=== PATIENT | female | born 1935 | race Asian ===

== ENCOUNTER 2017-02-17 09:31 | Outpatient (CLI) | payer MEDICARE, OTHER ==
[2017-02-17 13:05] LABS: ALBUMIN/GLOBULIN RATIO 1.4 (1.0-2.2); BILIRUBIN,TOTAL 0.7 mg/dL (0.2-1.0); CALCIUM 9.2 mg/dL (8.5-10.3); CREATININE 0.6 mg/dL (0.4-1.0); TOTAL PROTEIN 7.3 g/dL (6.7-8.2)
== END 2017-02-17 09:32 | disposition home or self-care (01) ==
LOC: LAB.WCP 09:31
PROVIDERS: ATTEND Physician Assistant Medical
DX: R05 Cough (principal); R63.4 Abnormal weight loss; R53.83 Other fatigue
CPT/HCPCS: 36415; 80053

== ENCOUNTER 2017-02-27 10:20 | Outpatient (CLI) | payer MEDICARE, OTHER ==
--- NOTE | 2017-02-28 12:47 | Mammography Report ---
DIGITAL SCREENING MAMMOGRAM: 02/27/2017 CLINICAL INDICATION: An 81-year-old with history of benign right breast biopsy, for screening. COMPARISON: 01/2016, 12/2014, 12/2013, 09/2012, 09/2011, 09/2010, 08/2009. TECHNIQUE: Routine CC and MLO projections were obtained of the breasts. FINDINGS: Scattered fibroglandular tissue is present within the breasts. There are no dominant tremayne s, suspicious microcalcifications, or secondary signs of malignancy. In comparison to the previous st udies, there are no significant changes. ASSESSMENT: NO MAMMOGRAPHIC EVIDENCE OF MALIGNANCY. NO SIGNIFICANT INTERVAL CHANGES. RECOMMENDATION: Screening mammography is recommended annually. BIRADS category 1 - negative. STANDARD QUALIFYING STATEMENTS 1. This examination was reviewed with the aid of Computed-Aided Detection (CAD). 2. A negative or benign imaging report should not delay biopsy if clinically suspicious findings are present. Consider surgical consultation if warranted. More than 5% of cancers are not identified by i maging. 3. Dense breasts may obscure an underlying neoplasm. JOB #: [id number] EXT JOB #:[id number]
== END 2017-02-27 10:21 | disposition home or self-care (01) ==
LOC: DI 10:20
PROVIDERS: ATTEND Physician Assistant Medical
DX: Z12.31 Encounter for screening mammogram for malignant neoplasm of breast (principal)
CPT/HCPCS: 77067

== ENCOUNTER 2017-03-10 10:17 | Outpatient (CLI) | payer MEDICARE, OTHER ==
[2017-03-10] MEDS ORDERED: IOPAMIDOL-300 50 ML VIAL ONE (10:43)
[2017-03-10] MEDS ORDERED: IOPAMIDOL-300 100 ML VIAL ONE (10:43)
[2017-03-10] MEDS ORDERED: IOPAMIDOL-300 50 ML VIAL PO ONE (11:00)
[2017-03-10] MEDS ORDERED: IOPAMIDOL-300 100 ML VIAL IVP ONE (11:00)
--- NOTE | 2017-03-10 13:34 | CT Report ---
CT CHEST WITH CONTRAST: 03/10/2017 CLINICAL INDICATION: Cough, chronic weight loss. TECHNIQUE: Axial CT images of the chest were obtained with 100 mL Isovue-300 intravenously. In accordance with CT protocol optimization, one or more of the following dose reduction techniques w ere utilized for this exam: automated exposure control, adjustment of mA and/or KV based on patient size, or use of iterative reconstructive technique. COMPARISON: 09/07/2015 FINDINGS: The heart and great vessels demonstrate atherosclerotic calcifications. Calcified mediast inal lymph nodes are present. No hilar or mediastinal lymphadenopathy is present. The lungs demonst rate emphysema. No pulmonary nodule or mass lesion is present. No effusion or pneumothorax is seen. Osseous structures demonstrate degenerative changes. IMPRESSION: EMPHYSEMA. NO SUSPICIOUS PULMONARY NODULE OR MASS LESION. :9 JOB #: [id number] EXT JOB #:[id number]
--- NOTE | 2017-03-10 13:37 | CT Report ---
CT ABDOMEN AND PELVIS WITH CONTRAST: 03/10/2017 CLINICAL INDICATION: Weight loss, left upper quadrant pain. TECHNIQUE: Axial CT images of the abdomen and pelvis were obtained with 100 mL Isovue-300 intravenou sly as well as oral contrast. In accordance with CT protocol optimization, one or more of the following dose reduction techniques w ere utilized for this exam: automated exposure control, adjustment of mA and/or KV based on patient size, or use of iterative reconstructive technique. COMPARISON: 09/07/2015 FINDINGS: The liver demonstrates a tiny hypodensity in the right lobe, statistically likely represen ting a cyst. The spleen, pancreas, kidneys, and adrenal glands are unremarkable. The gallbladder is not dilated. No bowel dilatation, free gas, or free fluid is present. No abdominal adenopathy is s een. Pelvis: The pelvic organs appear unremarkable. No free fluid or adenopathy is present. Osseous structures demonstrate degenerative changes. IMPRESSION: NO EVIDENT ETIOLOGY FOR PATIENT'S WEIGHT LOSS AND PAIN. JOB #: [id number] EXT JOB #:[id number]
== END 2017-03-10 10:18 | disposition home or self-care (01) ==
LOC: DI 10:17
PROVIDERS: ATTEND Physician Assistant Medical
DX: J44.9 Chronic obstructive pulmonary disease, unspecified (principal); R10.12 Left upper quadrant pain; R63.4 Abnormal weight loss
CPT/HCPCS: 71260; 74177; Q9967

== ENCOUNTER 2017-06-20 13:07 | Outpatient (CLI) | payer MEDICARE, OTHER ==
[2017-06-20] MEDS ORDERED: ALBUTEROL NEB 2.5 MG/3 ML INH ONE (14:05)
[2017-06-20] MEDS ORDERED: ALBUTEROL NEB 2.5 MG/3 ML INH PRN (14:48)
== END 2017-06-20 13:08 | disposition home or self-care (01) ==
LOC: RT 13:07
PROVIDERS: ATTEND Physician Assistant Medical
DX: J44.9 Chronic obstructive pulmonary disease, unspecified (principal)
CPT/HCPCS: 94060; 94664; 94729; J7613

== ENCOUNTER 2017-07-30 08:20 | Outpatient (CLI) | payer MEDICARE, OTHER ==
[2017-07-30 13:04] LABS: BASOPHILS # (AUTO) 0.2 10^3/uL (0.0-0.1); BASOPHILS % (AUTO) 2.6 %; EOSINOPHILS # (AUTO) 0.4 10^3/uL (0.0-0.7); EOSINOPHILS % (AUTO) 5.8 %; HGB - HEMOGLOBIN 13.6 g/dL (12.0-16.0); LYMPHOCYTES % (AUTO) 32.1 %; MEAN CORPUSCULAR HEMOGLOBIN 29.3 pg (27.0-31.0); MEAN CORPUSCULAR HGB CONC 33.8 g/dL (32.0-36.0); MEAN CORPUSCULAR VOLUME 86.7 fL (81.0-99.0); MEAN PLATELET VOLUME 7.8 fL (7.9-10.8); MONOCYTES # (AUTO) 0.5 10^3/uL (0.0-1.0); MONOCYTES % (AUTO) 7.5 %; NEUTROPHILS # (AUTO) 3.2 10^3/uL (1.5-6.6); PLT - PLATELET COUNT 232 10^3/uL (130-450); RED BLOOD COUNT 4.65 10^6/uL (4.20-5.40); RED CELL DISTRIBUTION WIDTH 13.3 % (12.0-15.0); WHITE BLOOD COUNT 6.1 x10^3/uL (4.8-10.8)
[2017-07-30 13:42] LABS: ALBUMIN 3.9 g/dL (3.2-5.5); ALBUMIN/GLOBULIN RATIO 1.3 (1.0-2.2); ALKALINE PHOSPHATASE 53 IU/L (42-121); ALT ALANINE AMINOTRANSFERASE 13 IU/L (10-60); AST ASPARTATE AMINOTRANSFERASE 20 IU/L (10-42); BILIRUBIN,TOTAL 0.4 mg/dL (0.2-1.0); BUN - BLOOD UREA NITROGEN 17 mg/dL (6-20); CALCIUM 8.9 mg/dL (8.5-10.3); CARBON DIOXIDE - CO2 30 mmol/L (21-32); CHLORIDE 101 mmol/L (101-111); CHOL/HDL RATIO 2.7 (<4.4); CHOLESTEROL 170 mg/dL; CREATININE 0.5 mg/dL (0.4-1.0); GFR - MDRD 118 (>89); GLUCOSE 91 mg/dL (70-100); HDL CHOLESTEROL 63 mg/dL; LDL CHOLESTEROL,CALCULATED 93 mg/dL; LDL/HDL RATIO 1.5 (<4.4); SODIUM 138 mmol/L (135-145); TOTAL PROTEIN 6.9 g/dL (6.7-8.2); VLDL CHOLESTEROL 14 mg/dL
== END 2017-07-30 08:21 | disposition home or self-care (01) ==
LOC: LAB.WCP 08:20
PROVIDERS: ATTEND Physician Assistant Medical
DX: E78.00 Pure hypercholesterolemia, unspecified (principal); M85.80 Other specified disorders of bone density and structure, unspecified site; R53.83 Other fatigue; Z79.899 Other long term (current) drug therapy
CPT/HCPCS: 36415; 80053; 80061; 82306; 83721; 84443; 85025

== ENCOUNTER 2018-03-03 08:50 | Outpatient (CLI) | payer MEDICARE, OTHER ==
[2018-03-03 12:29] LABS: BASOPHILS # (AUTO) 0.1 10^3/uL (0.0-0.1); EOSINOPHILS # (AUTO) 0.4 10^3/uL (0.0-0.7); HGB - HEMOGLOBIN 13.8 g/dL (12.0-16.0); LYMPHOCYTES # (AUTO) 1.9 10^3/uL (1.5-3.5); LYMPHOCYTES % (AUTO) 41.3 %; MEAN CORPUSCULAR HEMOGLOBIN 29.7 pg (27.0-31.0); MEAN CORPUSCULAR HGB CONC 32.9 g/dL (32.0-36.0); MEAN CORPUSCULAR VOLUME 90.2 fL (81.0-99.0); MEAN PLATELET VOLUME 8.2 fL (7.9-10.8); MONOCYTES # (AUTO) 0.5 10^3/uL (0.0-1.0); MONOCYTES % (AUTO) 11.4 %; NEUTROPHILS # (AUTO) 1.7 10^3/uL (1.5-6.6); NEUTROPHILS % (AUTO) 37.3 %; PLT - PLATELET COUNT 186 10^3/uL (130-450); RED BLOOD COUNT 4.64 10^6/uL (4.20-5.40); RED CELL DISTRIBUTION WIDTH 13.9 % (12.0-15.0); WHITE BLOOD COUNT 4.6 x10^3/uL (4.8-10.8)
[2018-03-03 12:51] LABS: ALBUMIN 4.3 g/dL (3.2-5.5); ALBUMIN/GLOBULIN RATIO 1.5 (1.0-2.2); ALKALINE PHOSPHATASE 58 IU/L (42-121); ALT ALANINE AMINOTRANSFERASE 17 IU/L (10-60); AST ASPARTATE AMINOTRANSFERASE 21 IU/L (10-42); BILIRUBIN,TOTAL 0.6 mg/dL (0.2-1.0); BUN - BLOOD UREA NITROGEN 23 mg/dL (6-20); CALCIUM 9.1 mg/dL (8.5-10.3); CARBON DIOXIDE - CO2 31 mmol/L (21-32); CHLORIDE 102 mmol/L (101-111); CHOL/HDL RATIO 2.3 (<4.4); CHOLESTEROL 203 mg/dL; CREATININE 0.5 mg/dL (0.4-1.0); GFR - MDRD 118 (>89); GLUCOSE 92 mg/dL (70-100); HDL CHOLESTEROL 89 mg/dL; LDL CHOLESTEROL,CALCULATED 97 mg/dL; LDL/HDL RATIO 1.1 (<4.4); SODIUM 142 mmol/L (135-145); TOTAL PROTEIN 7.2 g/dL (6.7-8.2); VLDL CHOLESTEROL 17 mg/dL
== END 2018-03-03 08:51 | disposition home or self-care (01) ==
LOC: LAB.WCP 08:50
PROVIDERS: ATTEND Family Medicine
DX: E78.00 Pure hypercholesterolemia, unspecified (principal); J44.9 Chronic obstructive pulmonary disease, unspecified; R05 Cough; R53.83 Other fatigue
CPT/HCPCS: 36415; 80053; 80061; 83721; 85025

== ENCOUNTER 2018-10-22 08:00 | Outpatient (CLI) | payer MEDICARE, OTHER ==
[2018-10-22 08:20] LABS: BASOPHILS # (AUTO) 0.1 10^3/uL (0.0-0.1); BASOPHILS % (AUTO) 1.9 %; EOSINOPHILS # (AUTO) 0.1 10^3/uL (0.0-0.7); EOSINOPHILS % (AUTO) 3.9 %; HGB - HEMOGLOBIN 14.1 g/dL (12.0-16.0); LYMPHOCYTES # (AUTO) 1.4 10^3/uL (1.5-3.5); LYMPHOCYTES % (AUTO) 37.2 %; MEAN CORPUSCULAR HEMOGLOBIN 28.9 pg (27.0-31.0); MEAN CORPUSCULAR HGB CONC 32.1 g/dL (32.0-36.0); MEAN PLATELET VOLUME 7.3 fL (7.9-10.8); MONOCYTES # (AUTO) 0.4 10^3/uL (0.0-1.0); MONOCYTES % (AUTO) 9.8 %; NEUTROPHILS # (AUTO) 1.8 10^3/uL (1.5-6.6); NEUTROPHILS % (AUTO) 47.2 %; PLT - PLATELET COUNT 140 10^3/uL (130-450); RED BLOOD COUNT 4.87 10^6/uL (4.20-5.40); RED CELL DISTRIBUTION WIDTH 13.6 % (12.0-15.0); WHITE BLOOD COUNT 3.7 x10^3/uL (4.8-10.8)
[2018-10-22 08:27] LABS: ALBUMIN/GLOBULIN RATIO 1.6 (1.0-2.2); ALKALINE PHOSPHATASE 60 IU/L (42-121); ALT ALANINE AMINOTRANSFERASE 16 IU/L (10-60); AST ASPARTATE AMINOTRANSFERASE 19 IU/L (10-42); BILIRUBIN,TOTAL 0.6 mg/dL (0.2-1.0); BUN - BLOOD UREA NITROGEN 21 mg/dL (6-20); CALCIUM 9.4 mg/dL (8.5-10.3); CARBON DIOXIDE - CO2 32 mmol/L (21-32); CHLORIDE 98 mmol/L (101-111); CHOL/HDL RATIO 2.3 (<4.4); CHOLESTEROL 175 mg/dL; CREATININE 0.5 mg/dL (0.4-1.0); GFR - MDRD 118 (>89); GLUCOSE 100 mg/dL (70-100); HDL CHOLESTEROL 77 mg/dL; LDL CHOLESTEROL,CALCULATED 87 mg/dL; LDL/HDL RATIO 1.1 (<4.4); SODIUM 140 mmol/L (135-145); TOTAL PROTEIN 6.5 g/dL (6.7-8.2); VLDL CHOLESTEROL 11 mg/dL
== END 2018-10-22 23:59 | disposition home or self-care (01) ==
LOC: LAB.WCP 08:00
PROVIDERS: ATTEND Family Medicine
DX: E78.00 Pure hypercholesterolemia, unspecified (principal); R53.83 Other fatigue; R05 Cough
CPT/HCPCS: 36415; 80053; 80061; 83721; 84443; 85025

== ENCOUNTER 2018-11-03 13:04 | Outpatient (CLI) | payer MEDICARE, OTHER ==
[2018-11-03] MEDS ORDERED: IOVERSOL 320 100 ML VIAL IVP ONE ×2 (13:13→14:53)
[2018-11-03] MEDS ORDERED: IOVERSOL 320 50 ML VIAL ONE (13:14)
[2018-11-03] MEDS ORDERED: IOVERSOL 320 50 ML VIAL PO ONE (14:53)
--- NOTE | 2018-11-04 07:12 | CT Report ---
Reason: BONE DISORDER, SMOKING, WT LOSS, COPD, COUGH CHRON Procedure Date: 11/03/2018 Accession Number: [id number] / [id number] Procedure: CT - CHEST W CPT Code: FULL RESULT: EXAM: CT CHEST EXAM DATE: 11/03/2018 02:43 PM. CLINICAL HISTORY: Chronic cough, dyspnea, smoking history. COMPARISONS: ABDOMEN/PELVIS W/ 03/10/2017 12:18 PM. TECHNIQUE: Routine helical CT imaging was performed through the chest. IV contrast: 100 mL Optiray 320. Reconstructions: Coronal and sagittal. In accordance with CT protocol optimization, one or more of the following dose reduction techniques were utilized for this exam: automated exposure control, adjustment of mA and/or KV based on patient size, or use of iterative reconstructive technique. FINDINGS: Lungs/Pleura: There is upper lung predominant centrilobular emphysema, with some panlobular emphysema in the right upper lung. There is no evidence of acute consolidation. No evidence of pleural effusion. There is a small focus of juxtadiaphragmatic density with central lucency within the left lower lobe. The focus measures approximately 1.5 x 1.5 cm (image 49 series 3). On coronal and sagittal imaging, this focus has an appearance more suggestive of atelectasis or scarring than a cavitary mass. There is some mild stable linear density within the left and right lower lobes; these have an appearance consistent with scarring or chronic atelectasis (image 52 series 3). No other discrete nodules are seen. There is no evidence of pneumothorax. Mediastinum: Heart size is within normal limits. There are atheromatous calcifications of the aorta. There are no enlarged axillary, supraclavicular, mediastinal, or hilar lymph nodes. Bones: Unremarkable. Visualized Abdomen: The visualized portions of the upper abdominal organs demonstrate no acute abnormalities. Other: None. IMPRESSION: 1. There is moderate centrilobular and right upper lobe panlobular emphysema. 2. There is a 1.5 x 1.5 cm juxtadiaphragmatic density with central lucency within the left lower lobe as above. On axial imaging, the density has an appearance suggestive of a cavitary nodule. On coronal imaging, the appearance is more suggestive of atelectasis or scarring, possibly adjacent to a cyst; on the comparison study, there is a similar sized focus of lucency in this region (image 9 series 4 on the 03/10/2017 comparison study). Three-month interval CT follow-up or PET CT may be of utility for further evaluation of this finding. 3. There is stable scarring within the bibasilar dependent lower lobes. 4. No evidence of acute pulmonary CT process. 5. Heart size is within normal limits. RADIA
--- NOTE | 2018-11-04 08:30 | DEXA Report ---
Reason: BONE DISORDER, SMOKING, WT LOSS, COPD, COUGH CHRON Procedure Date: 11/03/2018 Accession Number: [id number] / [id number] Procedure: DEX - Dexa Spine and/or Hip CPT Code: FULL RESULT: EXAM: Dexa Spine and/or Hip DATE: 11/03/2018 1:35 PM CLINICAL HISTORY: BONE DISORDER, SMOKING, WT LOSS, COPD, COUGH CHRON TECHNIQUE: Dual energy x-ray absorptiometry (DXA) was performed on a [place] [facility]. Regions measured are the AP Spine, femoral neck, and if needed forearm. COMPARISON: 02/27/2016 In accordance with the International Society for Clinical Densitometry (ISCD) guidelines, data from previous exams may be reanalyzed using current recommendations and techniques. This is done to allow a more accurate basis for comparison with the current study. FINDINGS: The data for the lumbar spine is as follows: BMD (g/cm/cm) T-SCORE Z-SCORE REGION L1 0.720 -3.4 -0.4 L2 0.866 -2.8 0.2 L3 0.897 -2.5 0.4 L4 1.063 -1.1 1.8 TOTAL 0.912 -2.2 0.7 NOTE: All evaluable vertebrae are used for classification The data for the hip is as follows: BMD (g/cm/cm) T-SCORE Z-SCORE REGION Neck 0.631 -2.9 0.1 TOTAL 0.672 -2.7 0.3 NOTE: The femoral neck or total proximal femur, whichever is lowest, is used for classification. DXA RESULTS SUMMARY: Spine SCAN DATE AGE BMD CHANGE VS CHANGE VS PREVIOUS PREVIOUS % [birth year]03[birth year]2018 [age] 0.912 0.011 1.2 02/27/2016 80.6 0.901 * Denotes significant change at the 95% confidence level. Denotes dissimilar scan types or analysis methods. DXA RESULTS SUMMARY: Hip SCAN DATE AGE BMD CHANGE VS CHANGE VS PREVIOUS PREVIOUS % [birth year]2018 83.2 0.672 -0.136* -16.8* 02/27/2016 80.6 0.808 * Denotes significant change at the 95% confidence level. Denotes dissimilar scan types or analysis methods. IMPRESSION: THE WHO CLASSIFICATION BASED ON THE INTERNATIONAL REFERENCE STANDARD IS OSTEOPOROSIS. THE FRACTURE RISK IS HIGH. RECOMMENDATION: Patients with diagnosis of osteoporosis or osteopenia should have regular bone mineral density assessment. For those eligible for Medicare, routine testing is allowed once every 2 years. Testing frequency can be increased for patients who have rapidly progressing disease or for those who are receiving medical therapy to restore bone mass. COMMENT: World Health Organization (WHO) definitions for osteoporosis and osteopenia: NORMAL BMD: T-score at -1.0 or higher, fracture risk is low OSTEOPENIA BMD: T-score between -1.0 and -2.5, fracture risk is increased. OSTEOPOROSIS BMD: T-score at -2.5 or lower, fracture risk is high. National Osteoporosis Foundation recommends: 1. Obtain adequate dietary calcium (at least 1200 mg per day) and vitamin D (400-800 international units per day). 2. Participate, as appropriate, in regular weightbearing and muscle-strengthening exercise. 3. Avoid tobacco use and reduce alcohol and caffeine intake. 4. For more detailed information see the website at www.NOF.org.
--- NOTE | 2018-11-04 10:45 | CT Report ---
Reason: BONE DISORDER, SMOKING, WT LOSS, COPD, COUGH CHRON Procedure Date: 11/03/2018 Accession Number: [id number] / [id number] Procedure: CT - Abdomen/Pelvis W CPT Code: FULL RESULT: EXAM: CT ABDOMEN AND PELVIS EXAM DATE: 11/03/2018 02:43 PM. CLINICAL HISTORY: Bone disorder. Smoking, weight loss, COPD, and pain. COMPARISONS: ABDOMEN/PELVIS W/ 03/10/2017 12:18 PM. TECHNIQUE: Routine helical CT imaging was performed through the abdomen and pelvis. IV contrast: 100 mL Optiray 320. Enteric contrast: Yes. Reconstructions: Coronal and sagittal. In accordance with CT protocol optimization, one or more of the following dose reduction techniques were utilized for this exam: automated exposure control, adjustment of mA and/or KV based on patient size, or use of iterative reconstructive technique. FINDINGS: Lung Bases: Emphysema. Liver: A segment 6 hepatic hypodensity is too small to characterize, stable compared to 2017. Gallbladder/Bile Ducts: Unremarkable. Spleen: Normal. Pancreas: The pancreatic head and body region is not well seen due to absence of intra-abdominal fat. The pancreatic duct measures 3 mm and the distal CBD is prominent at 9 mm. No definite mass is identified. Adrenal Glands: Normal. Kidneys: Normal. No masses or hydronephrosis. Peritoneal Cavity/Bowel: There is no bowel obstruction. No free fluid, free air or adenopathy. No masses or acute inflammatory process. Pelvic Organs: Prominent enhancement of the periuterine venous plexus, nonspecific finding. Vasculature: Moderate atherosclerotic disease, no abdominal aortic aneurysm. Bones: Approximately 5 mm of anterolisthesis of L4 on L5 with no aggressive osseous lesion detected. Other: None. IMPRESSION: Pancreaticobiliary ductal prominence with limited visualization of the pancreatic head region. Recommendation: Correlation to laboratory values to determine whether further imaging or gastroenterologic consultation for potential nonvisualized distal biliary/pancreatic head pathology is warranted. RADIA
== END 2018-11-03 13:05 | disposition home or self-care (01) ==
LOC: DI 13:04
PROVIDERS: ATTEND Family Medicine
DX: J43.8 Other emphysema (principal); R91.8 Other nonspecific abnormal finding of lung field; M81.0 Age-related osteoporosis without current pathological fracture; F17.200 Nicotine dependence, unspecified, uncomplicated
CPT/HCPCS: 71260; 74177; 77080; Q9967

== ENCOUNTER 2018-11-20 14:32 | Outpatient (CLI) | payer MEDICARE, OTHER ==
[2018-11-20 19:11] LABS: ALKALINE PHOSPHATASE 58 IU/L (42-121); ALT ALANINE AMINOTRANSFERASE 20 IU/L (10-60); AMYLASE 66 U/L (28-100); AST ASPARTATE AMINOTRANSFERASE 23 IU/L (10-42); BILIRUBIN,TOTAL 0.6 mg/dL (0.2-1.0); LIPASE 31 U/L (22-51); TOTAL PROTEIN 6.3 g/dL (6.7-8.2)
[2018-11-20 19:29] LABS: BILIRUBIN,DIRECT < 0.1 mg/dL (0.1-0.5)
== END 2018-11-20 23:59 ==
LOC: LAB.WCP 14:32
PROVIDERS: ATTEND Family Medicine
DX: R93.5 Abnormal findings on diagnostic imaging of other abdominal regions, including retroperitoneum (principal)
CPT/HCPCS: 36415; 80076; 82150; 83690; 86301

== ENCOUNTER 2018-12-10 11:23 | Outpatient (CLI) | payer MEDICARE, OTHER | END 2018-12-10 11:24 | disposition home or self-care (01) | LOC: DI 11:23 | PROVIDERS: ATTEND Family Medicine | DX: R06.01 Orthopnea (principal) | CPT/HCPCS: 93306 ==

== ENCOUNTER 2019-02-15 09:35 | Outpatient (CLI) | payer MEDICARE, OTHER ==
[2019-02-15] MEDS ORDERED: IOVERSOL 320 100 ML VIAL IVP ONE ×2 (09:55→10:28)
[2019-02-15 10:06] LABS: CREATININE 0.4 mg/dL (0.4-1.0)
--- NOTE | 2019-02-15 16:37 | CT Report ---
Reason: ABNORMAL CHEST CT SCAN Procedure Date: 02/15/2019 Accession Number: [id number] / [id number] Procedure: CT - CHEST W CPT Code: FULL RESULT: EXAM: CT CHEST EXAM DATE: 02/15/2019 10:26 AM. CLINICAL HISTORY: Abnormal chest CT scan. COMPARISONS: CHEST W/ 11/03/2018 2:32 PM CHEST W/ 03/10/2017 12:18 PM. TECHNIQUE: Routine helical CT imaging was performed through the chest. IV contrast: None. Reconstructions: Coronal and sagittal. In accordance with CT protocol optimization, one or more of the following dose reduction techniques were utilized for this exam: automated exposure control, adjustment of mA and/or KV based on patient size, or use of iterative reconstructive technique. FINDINGS: Lungs/Pleura: There is a new hyperdense irregular pulmonary nodule with spiculated margins in the lateral right middle lobe measuring 14 x 13 x 12 mm (reference image 37 series 4). Previous finding of concern recommended for surveillance in the medial left lower lobe has reverted to its baseline appearance compared to 2017 and represents a thin-walled cystic airspace resembling a bleb (reference image 50 series 4). Stable 4 mm pulmonary nodule in the right lower lobe image 51 series 4 compared to 2017. Otherwise there is a stable pattern of panacinar emphysema greatest in the upper lobes and right worse than left. Stable scarring change likely with rounded atelectasis in the medial lower lungs. Mediastinum: No adenopathy or masses. The heart and great vessels are normal. Stable atherosclerotic ectasia of the aorta. Bones: Unremarkable. Visualized Abdomen: Unremarkable. Other: Extreme paucity of subcutaneous fat. IMPRESSION: 1. Spiculated 14 mm hyperdense pulmonary nodule of the right middle lobe is suspicious for malignancy. Further evaluation with PET/CT or tissue sampling (based on the clinical context and comorbidities/risk of biopsy) is recommended. 2. Finding in the medial left lower lobe requested for surveillance has reverted to baseline appearance compared to 2017 resembling a bleb. 3. Stable panacinar emphysema greater on the right. RADIA
== END 2019-02-15 09:36 | disposition home or self-care (01) ==
LOC: LAB 09:35 → DI 09:36
PROVIDERS: ATTEND Family Medicine
DX: R91.1 Solitary pulmonary nodule (principal); J43.9 Emphysema, unspecified
CPT/HCPCS: 36415; 71260; 82565; Q9967

== ENCOUNTER 2019-05-08 16:51 | Emergency (ER) | payer MEDICARE, OTHER ==
[2019-05-08] MEDS ORDERED: ACETAMINOPHEN 325 MG TABLET PO STA (20:40)
--- NOTE | 2019-05-08 20:43 | ED Physician Documentation ---
History of Present Illness - Stated complaint Stated Complaint: GLF - Chief complaint Chief Complaint: Neuro - History obtained from History obtained from: Patient, Family (son) - History of Present Illness Timing: How many days ago (3-4) Pain level now: 0 Improved by: no ameliorating factors Worsened by: no apparent exacerbating factors - Additonal information Additional information: brought to ED by her son who notes patient has had increasing confusion x 3-4 days with decreasing appetite, increasing unsteady gait, and productive cough. He says she had similar symptoms in the past when she had "a cold" (per son). He notes that she had GLF earlier today without apparent injury; he is less concerned with the fall than the symptoms and possible causes of them and the fall Review of Systems Unable to obtain: Confused Constitutional: reports: Fever (in ED, but not aware of fever at home), Fatigue Cardiac: denies: Chest pain / pressure Respiratory: reports: Cough. denies: Dyspnea GI: denies: Abdominal Pain, Vomiting, Diarrhea : denies: Dysuria, Frequency Musculoskeletal: reports: Reviewed and negative Neurologic: reports: Generalized weakness, Confused. denies: Focal weakness, Numbness, Headache, Head injury, LOC PD PAST MEDICAL HISTORY - Past Medical History Past Medical History: Yes Respiratory: COPD Musculoskeletal: Osteoporosis - Present Medications Home Medications: Ambulatory Orders Medication Instructions Recorded Confirmed Azithromycin [Zithromax] 250 mg PO DAILY #4 tablet 05/08/19 - Allergies Allergies/Adverse Reactions: Allergies Allergy/AdvReac Type Severity Reaction Status Date / Time No Known Drug Allergies Allergy Verified 05/08/19 17:23 - Living Situation Living Situation: reports: Alone (family (son) is visiting from [place]) Living Arrangement: reports: At home PD ED PE NORMAL - Vitals Vital signs reviewed: Yes - General General: No acute distress, Well developed/nourished, Other (awake, alert, oriented x 2 (says year is 1918 and it is May. She then corrects herself and says April but again says it is 1918)) - HEENT HEENT: Atraumatic, PERRL, EOMI, Moist mucous membranes - Neck Neck: Supple, no meningeal sign, No bony TTP - Cardiac Cardiac: RRR, No murmur - Respiratory Respiratory: No respiratory distress - Abdomen Abdomen: Soft, Non tender - Back Back: No CVA TTP, No spinal TTP - Derm Derm: Normal color, Warm and dry - Extremities Extremities: No edema - Neuro Neuro: roadway technician 2-12 intact, No motor deficit, No sensory deficit, Normal speech Eye Opening: Spontaneous Motor: Obeys Commands Verbal: Confused GCS Score: 14 PD ED PE EXPANDED - Respiratory Respiratory: Rhonchi (right mid/lower lung ur[place]) Results - Vitals Vitals: Vital Signs - 24 hr 05/08/19 05/08/19 05/08/19 17:17 19:33 21:33 Temperature 38.1 C H 38.4 C H Heart Rate 105 H 98 85 Respiratory 18 20 26 H Rate Blood Pressure 133/47 H 110/51 L 109/61 O2 Saturation 91 L 91 L 92 05/08/19 05/09/19 22:27 00:00 Temperature 37.9 C H Heart Rate 78 Respiratory 19 Rate Blood Pressure 107/58 L O2 Saturation 89 L 96 Oxygen O2 Source Room air - Labs Labs: Laboratory Tests 05/08/19 05/08/19 05/08/19 21:10 21:10 21:10 WBC 10.7 RBC 4.41 Hgb 12.9 Hct 40.0 MCV 90.7 MCH 29.3 MCHC 32.3 RDW 12.4 Plt Count 159 MPV 10.7 Neut # (Auto) 8.2 H Lymph # (Auto) 1.5 [place] # (Auto) 0.9 Eos # (Auto) 0.0 Baso # (Auto) 0.0 Absolute Nucleated RBC 0.00 Nucleated RBC % 0.0 Sodium Potassium Chloride Carbon Dioxide Anion Gap BUN Creatinine Estimated GFR (MDRD) Glucose Lactic Acid 1.1 Calcium Total Bilirubin AST ALT Alkaline Phosphatase B-Natriuretic Peptide 34 Total Protein Albumin Globulin Albumin/Globulin Ratio Lipase Influenza A (Rapid) Influenza B (Rapid) 05/08/19 05/08/19 21:32 22:05 WBC RBC Hgb Hct MCV MCH MCHC RDW Plt Count MPV Neut # (Auto) Lymph # (Auto) [place] # (Auto) Eos # (Auto) Baso # (Auto) Absolute Nucleated RBC Nucleated RBC % Sodium 136 Potassium 3.5 Chloride 95 L Carbon Dioxide 33 H Anion Gap 8.0 BUN 26 H Creatinine 0.5 Estimated GFR (MDRD) 118 Glucose 153 H Lactic Acid Calcium 8.6 Total Bilirubin 0.7 AST 19 ALT 13 Alkaline Phosphatase 51 B-Natriuretic Peptide Total Protein 6.7 Albumin 3.6 Globulin 3.1 Albumin/Globulin Ratio 1.2 Lipase 27 Influenza A (Rapid) Negative Influenza B (Rapid) Negative - Rads (name of study) chest xray Radiology: Prelim report reviewed, See rad report PD MEDICAL DECISION MAKING - ED course Complexity details: reviewed results, re-evaluated patient, considered differential, d/w patient, d/w family ED course: fever, cough, and cxr c/w pneumonia. She has COPD and patient' son says patient has both oxygen concentrator at home as well as oxygen canisters, although she has not required oxygen on an ongoing/constant basis. She has mild hypoxia in ED, with pulse ox in low 90s on room air, briefly as low as 88%. However, she is in NAD during ED stay, speaks in full sentences, and pulse ox is 96-98% with 2 liters/min. Labs are reassuring, including normal WBC and normal lactate. I discussed results with patient's son and plan is to d/c on zithromax (given dose in ED as well as 1gram IV Rocephin), and he will stay with her for the next several days and will bring her back or call 911 if she worsens in any way). Departure - Departure Disposition: 01 Home, Self Care Clinical Impression: Pneumonia Qualifiers: Pneumonia type: due to unspecified organism Laterality: left Lung location: lower lobe of lung Qualified Code(s): J18.9 - Pneumonia, unspecified organism Condition: Good Instructions: ED Pneumonia Adult Follow-Up: Enedelia Parish MD [Primary Care Provider] - Prescriptions: Azithromycin [Zithromax] 250 mg PO DAILY #4 tablet Forms: Activity restrictions Discharge Date/Time: 05/09/19 00:31
[2019-05-08 21:39] LABS: BASOPHILS % (AUTO) 0.3 %; HGB - HEMOGLOBIN 12.9 g/dL (12.0-16.0); LYMPHOCYTES # (AUTO) 1.5 10^3/uL (1.5-3.5); LYMPHOCYTES % (AUTO) 14.4 %; MEAN CORPUSCULAR HEMOGLOBIN 29.3 pg (27.0-31.0); MEAN CORPUSCULAR HGB CONC 32.3 g/dL (32.0-36.0); MEAN CORPUSCULAR VOLUME 90.7 fL (81.0-99.0); MEAN PLATELET VOLUME 10.7 fL (7.9-10.8); MONOCYTES # (AUTO) 0.9 10^3/uL (0.0-1.0); MONOCYTES % (AUTO) 8.8 %; NEUTROPHILS # (AUTO) 8.2 10^3/uL (1.5-6.6); NEUTROPHILS % (AUTO) 75.9 %; PLT - PLATELET COUNT 159 10^3/uL (130-450); RED BLOOD COUNT 4.41 10^6/uL (4.20-5.40); RED CELL DISTRIBUTION WIDTH 12.4 % (12.0-15.0); WHITE BLOOD COUNT 10.7 x10^3/uL (4.8-10.8)
[2019-05-08 21:54] LABS: ALBUMIN 3.6 g/dL (3.2-5.5); ALBUMIN/GLOBULIN RATIO 1.2 (1.0-2.2); BILIRUBIN,TOTAL 0.7 mg/dL (0.2-1.0); CALCIUM 8.6 mg/dL (8.5-10.3); TOTAL PROTEIN 6.7 g/dL (6.7-8.2)
--- NOTE | 2019-05-08 22:03 | XRAY Report ---
Reason: cough, fever Procedure Date: 05/08/2019 Accession Number: [id number] / [id number] Procedure: XR - Chest 2 View X-Ray CPT Code: 47019 Final Report FULL RESULT: EXAM: CHEST RADIOGRAPHY EXAM DATE: 05/08/2019 09:24 PM. CLINICAL HISTORY: Cough, fever. COMPARISON: CHEST 2 VIEW PA/LAT 06/28/2014 1:05 PM CHEST W/ 02/15/2019 10:21 AM. TECHNIQUE: 2 views. FINDINGS: Lungs/Pleura: Airspace opacity in the left lower lobe and possible mild airspace opacity in the lingula. Suspect small left pleural effusion. Subtle nodular density in right lower lung. Hyperinflated lungs compatible with emphysematous changes. No pneumothorax. Mediastinum: Heart and mediastinal contours are unremarkable. Aortic atherosclerosis present. Other: None. IMPRESSION: 1. Left lower lobe pneumonia. Component of lingular pneumonia not excluded. Recommend follow-up CXR following completion of treatment to ensure resolution. 2. Suspected small left pleural effusion. 3. Hyperinflated lungs compatible with underlying emphysema/COPD. 4. Subtle nodular density in right lower lung. Correlate with recent prior CT and recommend further workup if not already performed. RADIA
[2019-05-08 22:04] LABS: CREATININE 0.5 mg/dL (0.4-1.0)
[2019-05-08] MEDS ORDERED: AZITHROMYCIN 250 MG TABLET PO STA (23:38)
[2019-05-08] MEDS ORDERED: cefTRIAXone 1 GM in SODIUM CHLORIDE 0.9% MINIBAG 100 ML IV STA (23:38)
[2019-05-09 00:30] VITALS: BP 107/58
== END 2019-05-09 00:31 | disposition home or self-care (01) ==
LOC: ED 16:51
DX: J18.1 Lobar pneumonia, unspecified organism (principal); R09.02 Hypoxemia; R91.8 Other nonspecific abnormal finding of lung field
CPT/HCPCS: 36415; 71046; 80053; 83605; 83690; 83880; 85025; 87040; 87275; 87276; 96365; 99284; A9270